=== PATIENT | female | born 1965 | race Caucasian/White ===

== ENCOUNTER → 2017-09-23 | Emergency (ER) | payer SELFPAY ==
[~2017-09-23] VITALS: Ht 157.5 cm; Wt 64.9 kg
[2017-09-23 22:00] VITALS: BP 171/100
== END | disposition home or self-care (01) ==
LOC: ER 21:59
DX: Z00.8 Encounter for other general examination (principal); I10 Essential (primary) hypertension; F10.10 Alcohol abuse, uncomplicated; F17.200 Nicotine dependence, unspecified, uncomplicated
CPT/HCPCS: 99281; A4606; Z7610; Z7502